=== PATIENT | female | born 1980 | race Caucasian/White ===

== ENCOUNTER 2017-09-04 18:20 | Emergency (ER) | payer MEDICAID ==
[~2017-09-04] VITALS: Ht 167.6 cm; Wt 108.0 kg
--- NOTE | 2017-09-04 18:53 | Urgent Treatment Center Report ---
History of Present Issue Date/Time Seen by Provider 09/04/17 1841 Visit Reason Pt arrived:Stretcher Presenting Problem:PT STATES SHE DROPPED A LARGE CUTTING BOARD ON LEFT FOREARM AND WRIST Location if Accident:Home Onset of symptoms date/time:/ or onset unknown for:MEDICAL HX UNKNOWN Have you (or family members/close friends) recently traveled outside the [place]? N If Yes, where/when: Have you had exposure to infectious disease within the past month? TB? Other? Specify: Patient presents with c/o left forearm pain and swelling that started approximately 2 weeks ago-she was fixing the a microwave cart and the top of a microwave slipped off falling onto her left forearm. Has been taking ibuprofen without relief. Rates pain "06/01"; c/o intermittent n/t of left fingers that has worsened over the last several days. Source patient Exam Limitations no limitations ALLERGIES Coded Allergies: nifedipine (From [employer]) (09/04/17) History Medical History General CAD? No Angina: No GA: No Hypertension? No Hyperlipidemia? No CHF? No DVT? No PE? No COPD? No Asthma? No Anemia? No GERD? No Gastric ulcers? No GI Bleed? No Hernia? No Thyroid Problems? No Hypothyroidism? No CVA? No Seizures? No Diabetes? No Renal Insuffiency? No UTI? No Stones? No BPH? No GB Disease: No Nephritic Syndrome? No Asplenia? No Hepatitis? No Sickle Cell Disease? No Arthritis? No Migraines? No Cataracts? No Glaucoma? No MRSA? No HIV? No TB? No Anxiety? No Depression? No Cancer? No More? No Immunization HX DT/Tetanus 1-4 Years Ago Surgical Hx Previous Surgery?N Social History Smoking Hx Smoker: Current Every Day Smoker Tobacco: Yes Type Cigarettes Packs/day 1 1/2 - 2 Packs Alcohol Alcohol: No Review of Systems All Other Systems Reviewed and Negative Constitutional denies chills, denies fever Respiratory denies shortness of breath Musculoskeletal other (left forearm swelling) Skin denies change in color, denies rash Physical Exam Vital Signs Vital Signs Date Time Temp Pulse Resp B/P Pulse O2 O2 Flow FiO2 Ox Delivery Rate 09/04 2023 98.3 98 18 154/84 100 09/04 1828 98.3 98 18 154/84 100 General Appearance normal appearance, WD/WN Respiratory Status Yes: chest symmetrical. No: respiratory distress. Cardiovascular normal exam, regular rate/rhythm, no murmur Peripheral Pulses Pulses normal Yes Peripheral Pulses 2+ radial (R), 2+ radial (L) Extremities normal capillary refill, limited range of motion (left forearm), swelling (left forearm), left forearm moderately TTP; moderately edematous without erythema/ecchymosis Strength 4 Upper Ext (L), 5 Upper Ext (R) Neurologic alert, normal exam, no motor/sensory deficits, oriented x 3 Mental status normal mood/affect Skin intact, normal color, warm/dry Medical Decision Making LABS/Meds/Orders Pt receiving controlled substance in ED? No Results/Orders Current Medication Orders Sig/Yamileth Start time Last Medication Dose Route Stop Time Status Admin Ibuprofen 800 MG ONCE ONE 09/04 2030 DCD 09/04 PO 09/04 Ibuprofen 0 .STK-MED ONE 09/04 2019 DC PO Orders Procedure Date/time Status [facility] STABILIZE JOINT/AREA 09/04 2015 Active WRIST-3 VIEWS-LT 09/04 1844 Active FOREARM-LT 09/04 1844 Active XRAY/CT/US XRAY/CT/US XRAY forearm (left), wrist (left) XR interpretation by reviewed by me (discussed with Dr. Dowell) Xray Results no fracture seen Departure Departure Time of Disposition 2006 Disposition DC Home or Self Care(routine) Clinical Impression Primary Impression: Contusion of left forearm, initial encounter Condition STABLE Referrals CHRISTINE MORRELL, ANAT ZAPATA Call first thing on 09/07/17 to schedule follow-up appointment. Patient Instructions DI for Arm Pain Additional Instructions Rest, ice application x20 minutes every 2-3 hours, terrie wrap and elevate as much as possible. Call on Thursday to schedule ortho follow-up. Medications as directed. If symptoms persist or worsen follow-up with PCP for further evaluation. Patient verbalizes understanding. Discharge Counseling Counseled pt/family regarding diagnosis, test results, medications/RX, home care, follow up needs Prescriptions Current Visit Scripts Ibuprofen (Ibuprofen 800MG) 800 MG PO TIDP PRN pain #30 TAB take 1 tablet three times daily as needed for pain at 2220
[2017-09-04] MEDS ORDERED: IBUPROFEN800 MG PO (20:11)
[2017-09-04 20:23] VITALS: BP 154/84
--- NOTE | 2017-09-05 07:40 | RADIOLOGY REPORT PS360 ---
FOREARM-LT CLINICAL INDICATION: Pain following injury CUTTING BOARD FELL ONTO ARM ORDERING PHYSICIAN: SHUBHAM STEVENS APRN PATIENT AGE: 36 years COMPARISON: None FINDINGS: No fracture or dislocation or other significant anomalies. IMPRESSION: Negative left forearm
--- NOTE | 2017-09-05 07:40 | RADIOLOGY REPORT PS360 ---
WRIST-3 VIEWS-LT HISTORY: Pain following injury CUTTING BOARD FELL ONTO ARM ORDERING PHYSICIAN: SHUBHAM STEVENS APRN PATIENT AGE: 36 years COMPARISON: None FINDINGS: No fracture or dislocation. No lytic or blastic change. There is normal mineralization. The joint spaces are well-preserved. No significant degenerative/arthritic changes. No erosive changes evident. IMPRESSION: Negative left wrist, no acute finding
--- OUTSIDE RECORDS SUMMARY | 2017-09-05 21:49 | External Medical Summary Rpt ---
Author Author [employer] Miller, [employer] Address Unknown Phone Unavailable
--- OUTSIDE RECORDS SUMMARY | 2017-09-05 21:49 | External Medical Summary Rpt | CCD ---
Author Author [employer] Organization [employer] Address Unknown Phone Unavailable Purpose Continuity of Care Document - through 2016
--- OUTSIDE RECORDS SUMMARY | 2017-09-05 21:49 | External Medical Summary Rpt | CCD ---
Demographics Home Phone Preferred Language Mexican Marital Status Unknown Adventism Affiliation Unknown Race Unknown Ethnic Group Unknown Author Author , GUMARO NAIK Address Unknown Phone [email or web address] Immunization Name Date Rout CVX Reac Dose Comm Prov Is Faci e tion ent ider Refu lity Give sed n Infl 11- 150 999 Hist D202 No D202 uenz 8-20 oric 15 15 a 14 al Quad Info Inj rmat ion - Sour ce Unsp ecif ied Infl 01- 140 999 Hist D202 No D202 uenz 8-20 oric 15 15 a, 13 al P-Fr Info ee rmat ion - Sour ce Unsp ecif ied
--- OUTSIDE RECORDS SUMMARY | 2017-09-05 21:49 | External Medical Summary Rpt | CCD ---
Demographics Home Phone Preferred Language Chinese Marital Status Unknown Jehovah'S Witness Affiliation Unknown Race Unknown Ethnic Group Unknown Author Author , GUMARO NAIK Address Unknown Phone [email or web address] Immunization Name Date Rout CVX Reac Dose [...]
== END 2017-09-04 20:24 | disposition home or self-care (01) ==
LOC: UTC 18:20
DX: S50.12XA Contusion of left forearm, initial encounter (principal); W22.8XXA Striking against or struck by other objects, initial encounter; Y92.019 Unspecified place in single-family (private) house as the place of occurrence of the external cause